=== PATIENT | male | born 1965 | race Caucasian/White ===

== ENCOUNTER 2016-12-22 13:27 | Inpatient (IN) | payer OTHER ==
[~2016-12-22] VITALS: Ht 185.4 cm; Wt 75.4 kg
--- NOTE | ~2016-12-22 | HP ---
Unit #: [id number] #: [id number] Patient: DEYSI WEINER [id number] [place], [place] [address] [id number] MR#: [id number] NAME: DEYSI WEINER ROOM: 24374 Age: 51 Sex: M Admission Date: 12/22/2016 : 1965 Attending Physician: Pepe Callahan M.D. Primary Care Physician: Raheel Dang M.D. HISTORY AND PHYSICAL CHIEF COMPLAINT Alcohol withdrawal. HISTORY OF PRESENT ILLNESS The patient is a 51-year-old male sent to [facility] emergency department from [place] [facility] secondary to alcohol withdrawal. Apparently at that facility the patient was tachycardic. Apparently he was asymptomatic. At this time the patient continues to be asymptomatic, states he feels well, denies chest pain, palpitations, and denies symptoms of withdrawal including hallucinations. PAST MEDICAL HISTORY Lung cancer treated 2014 with recurrence diagnosed in August of this year, alcoholism. PAST SURGICAL HISTORY None. SOCIAL HISTORY The patient smokes, drinks, denies illicit drug use. ALLERGIES Morphine. HOME MEDICATIONS 1. Ibuprofen 800 mg p.o. t.i.d. 2. Remeron 15 mg p.o. daily. 3. Mucinex 1200 mg p.o. b.i.d. 4. ProAir HFA two puffs q.4 h. p.r.n. 5. Oxycodone and acetaminophen 10/325 one p.o. q.8 h. p.r.n. REVIEW OF SYSTEMS A 10-point review of systems was obtained and it is negative with the exception of odynophagia secondary to a history of radiation treatment for his cancer. PHYSICAL EXAMINATION VITAL SIGNS: Temperature 99.2. Pulse 138. Blood pressure 158/94. GENERAL: A 51-year-old male in no acute distress, who appears stated age. HEENT: Pupils are equally round. Extraocular movements intact. Mucous membranes are dry. NECK: Supple. No JVD. No lymphadenopathy. CARDIAC: Regular rate and rhythm. No murmurs, gallops or rubs. Unit #: [id number] #: [id number] Patient: DEYSI WEINER LUNGS: Clear to auscultation bilaterally. ABDOMEN: Nontender, nondistended. Bowel sounds positive. EXTREMITIES: No cyanosis, clubbing or edema. They are warm and dry. PSYCHIATRIC: Alert and oriented x3. Affect is appropriate. NEUROLOGICAL: Cranial nerves II-XII intact grossly. The patient moves all extremities equally and with purpose. SKIN: No rashes, bruises or ulcers. MUSCULOSKELETAL: No muscle or joint pain. No muscle or joint swelling. DIAGNOSTIC STUDIES LABORATORY: Chemistries reveal a sodium of 133, albumin of 3.1, hemoglobin 11.9, IMAGING: None. ASSESSMENT AND PLAN 1. Alcohol withdrawal: The rehab facility at which the patient was admitted was afraid that they were not going to be able to handle the patient's withdrawal. He had been started on Librium 25 mg p.o. q.6 h. and was mildly tachycardic. I will continue this and I have added the CIWA protocol with p.o. Ativan. 2. Lung cancer: The patient states that he was recently diagnosed with a recurrent lung cancer. He was told he has six to nine months to live but plans to undergo chemotherapy. I have discussed with the patient goals of care and possible hospice. The plan going forward is continued treatment. 3. Odynophagia: I have started the patient on viscous lidocaine 30 mL with meals. I have also continued the patient's oxycodone. 4. Prophylaxis: I have started the patient on Lovenox and SCDs. Dictated by Pepe Callahan M.D. NEIDA/merle TD: 12/22/2016 19:41 JOB #: [id number] HISTORY AND PHYSICAL Page 1 of 1 X Pepe Callahan MD X HISTORY AND PHYSICAL
--- NOTE | ~2016-12-22 | EKG ---
PATIENT: DYESI WEINER UNIT #: [id number] Ventricular Rate: 110 BPM Atrial Rate: 110 BPM P-R Interval: 144 ms QRS Duration: 86 ms Q-T Interval: 348 ms QTC Calculation(Bezet): 470 ms P Hannah: 76 degrees Calculated R Hannah: 46 degrees Calculated T Hannah: 76 degrees Diagnosis Line: Sinus tachycardia Diagnosis Line: Otherwise normal ECG Diagnosis Line: No previous ECGs available Diagnosis Line: Confirmed by HILTON SCHNEIDER MD ([id number]) on 12/22/2016 Diagnosis Line: 7:27:51 PM INTERPRETING MD: WYATT LE
--- NOTE | ~2016-12-22 | DS ---
Unit #: [id number] #: [id number] Patient: DEYSI WEINER [id number] [address] [address] [id number] I MR#: [id number] NAME: DEYSI WEINER ROOM: 311 Age: 51 Sex: M Admission Date: 12/22/2016 : 1965 Discharge Date: 12/25/2016 Attending Physician: Pepe Callahan M.D. Primary Care Physician: Raheel Dang M.D. DISCHARGE SUMMARY PRINCIPAL DIAGNOSES 1. Alcohol withdrawal. 2. History of lung cancer. HISTORY This is a 51-year-old male who has history of heavy alcohol abuse, history of lung cancer who follows at [facility]. He came to the emergency room from [place] [facility] secondary to alcohol withdrawal and severe tachycardia. He has been running low-grade temperatures during his (1) and having some chest congestion and wheezing. Was treated with alcohol withdrawal protocol. Also received some antibiotics, Levaquin 750 mg for 3 days. All his home medications were discontinued. He has been doing very well today. He has no alcohol withdrawal symptoms. He is being discharged home. The patient also had some hypomagnesemia, which was replaced today. CONDITION AT DISCHARGE Stable. DISCHARGE MEDICATIONS 1. Albuterol 2 puffs q.4 as needed for wheezing. 2. Ondansetron 4 mg q.6. 3. Remeron 15 mg daily. 4. Trazodone 50 mg b.i.d. 5. Loperamide 2 mg q.4. 6. Dronabinol capsule 5 mg b.i.d. 7. Promethazine 25 mg q.4. 8. Dicyclomine 10 mg t.i.d. 9. Prochlorperazine 10 mg t.i.d. 10. Hydroxyzine 25 mg daily. 11. Librium 25 mg q.6. 12. Guaifenesin. 13. Ibuprofen 800 p.r.n. as needed. 14. Oxycodone 1 tablet q.8. FOLLOWUP Follow up with [facility] for lung cancer, and the patient was discussed to follow up with the alcohol withdrawal facility as an outpatient. Dictated by... Destiney Pulido M.D. Unit #: [id number] #: [id number] Patient: DEYSI WEINER OZIEL/geovani TD: 12/26/2016 11:12 JOB #: [id number] DISCHARGE SUMMARY Page 1 of 1 X Destiney Pulido MD X DISCHARGE SUMMARY
[2016-12-22 15:54] LABS: URINE SOURCE CLEAN CATCH
[2016-12-22 15:59] LABS: BASOPHIL% 0.5 % (0-2.5); EOSINOPHIL# 0.1 X10e3 (0-0.7); EOSINOPHIL% 1.3 % (0.0-7.0); HEMATOCRIT 34.9 % (38.0-50.0); HEMOGLOBIN 11.9 gm/dL (13.0-16.0); LYMPHOCYTE# 0.2 X10e3 (1.0-3.5); LYMPHOCYTE% 4.7 % (17.0-45.0); MEAN CELL VOLUME 97.8 FL (83-96); MEAN CORPUSCULAR HEMOGLOBIN 33.2 PG (28-34); MONOCYTE# 0.4 X10e3 (0-1.0); MONOCYTE% 11.2 % (3.0-12.0); NEUTROPHIL# 3.3 X10e3 (1.5-7.1); NEUTROPHIL% 82.3 % (40-75); PLATELET COUNT 212 X10e3 (140-420); RED BLOOD COUNT 3.57 X10e (3.90-5.60); RED CELL DISTRIBUTION WIDTH 15.4 % (11.0-15.5)
[2016-12-22 16:03] LABS: URINE APPEARANCE CLEAR; URINE BILIRUBIN NEG (NEG); URINE BLOOD NEG (NEG); URINE COLOR YELLOW; URINE GLUCOSE NEG (NEG); URINE KETONE NEG (NEG); URINE LEUKOCYTE ESTERASE NEG (NEG); URINE NITRATE NEG (NEG); URINE PROTEIN TRACE (NEG); URINE SPECIFIC GRAVITY 1.012 (1.003-1.035); URINE UROBILINOGEN 0.2 MG/DL (NEG)
[2016-12-22 16:04] LABS: DIFF IND NO
[2016-12-22 16:08] LABS: CULTURE INDICATED? NO
[2016-12-22 16:15] LABS: AMPHETAMINE NEG (NEG); BARBITURATES NEG (NEG); BENZODIAZEPINES POS (NEG); COCAINE NEG (NEG); MARIJUANA NEG (NEG); OPIATES POS (NEG); TRICYCLIC ANTIDEPRESSANTS NEG (NEG); U METHADONE NEG (NEG)
[2016-12-22 16:33] LABS: ALBUMIN SERUM 3.1 g/dL (3.5-5.0); ALCOHOL BLOOD <5 mg/dL (0); ALKALINE PHOSPHATASE 127 U/L (32-92); ALT (SGPT) 14 U/L (10-40); AST (SGOT) 23 U/L (10-42); BILIRUBIN, DIRECT 0.1 mg/dL (0.0-0.2); BILIRUBIN,INDIRECT 0.4 mg/dL (0.0-0.9); BILIRUBIN,TOTAL 0.5 mg/dL (0.2-2.0); BLOOD UREA NITROGEN 9 mg/dL (9-23); CALCIUM SERUM 8.4 mg/dL (8.4-10.2); CARBON DIOXIDE 30 mmol/L (22-31); CHLORIDE 93 mmol/L (100-111); CREATININE SERUM 0.9 mg/dL (0.6-1.4); GLOM FILT RATE Estimated 99.2 mL/min (>60); GLUCOSE FASTING 95 mg/dL (70-110); POTASSIUM 3.5 mmol/L (3.5-5.1); PROTEIN TOTAL SERUM 6.8 g/dL (6.0-8.3); SODIUM 133 mmol/L (135-145)
[2016-12-22] MEDS ORDERED: PATIENT'S PHARMACY (17:54)
[2016-12-22] MEDS ORDERED: FOLIC ACID1 MG PO (17:54)
[2016-12-22] MEDS ORDERED: BENTYL10 MG PO (17:54)
[2016-12-22] MEDS ORDERED: LOPERAMIDE HCL2 M1 PO (17:55)
[2016-12-22] MEDS ORDERED: HYDROXYZINE HCL25 M1 PO (17:55)
[2016-12-22] MEDS ORDERED: IBUPROFEN PO (17:55)
[2016-12-22] MEDS ORDERED: DESYREL50 MG PO (17:56)
[2016-12-22] MEDS ORDERED: PHENERGAN PO (17:56)
[2016-12-22] MEDS ORDERED: COMPAZINE10 M1 PO (17:56)
[2016-12-22] MEDS ORDERED: LIBRIUM25 M1 PO (17:56)
[2016-12-22] MEDS ORDERED: ALPRAZOLAM PO (17:57)
[2016-12-22] MEDS ORDERED: REMERON PO (17:57)
[2016-12-22] MEDS ORDERED: DRONABINOL5 MG PO (17:57)
[2016-12-22] MEDS ORDERED: LEVAQUIN PO (17:57)
[2016-12-22] MEDS ORDERED: OXYCODONE-ACET1 EAC1 PO (17:58)
[2016-12-22] MEDS ORDERED: ZUPLENZ4 MG PO (17:58)
[2016-12-22] MEDS ORDERED: MUCINEX1200 MG PO (17:58)
[2016-12-22] MEDS ORDERED: PROAIR HFA8.5 GM INH (17:58)
[2016-12-22 18:09] LABS: POC - CKMB 1.2 ng/mL (0.0-7.9); POC - TROPONIN <0.05 ng/mL (<=0.05)
[2016-12-25 05:48] LABS: BUN/CREATININE RATIO 11.42; CREATININE SERUM 0.7 mg/dL (0.6-1.4); GLOM FILT RATE Estimated 110.1 mL/min (>60); MAGNESIUM 1.4 mg/dL (1.6-3.0); POTASSIUM 3.6 mmol/L (3.5-5.1)
[2016-12-25] MEDS ORDERED: LEVAQUIN PO (12:58)
== END 2016-12-25 13:26 | disposition home or self-care (01) | DRG 897 ==
LOC: CED 13:27 → CEDOF 18:36 → CED 19:36 → CEDOF 19:52 → C3A PCU 19:52
PROVIDERS: Emergency Medicine; Internal Medicine
DX: F10.239 Alcohol dependence with withdrawal, unspecified (principal); E83.42 Hypomagnesemia; R00.0 Tachycardia, unspecified; Z92.3 Personal history of irradiation; F17.210 Nicotine dependence, cigarettes, uncomplicated; Z88.5 Allergy status to narcotic agent; R13.10 Dysphagia, unspecified
CPT/HCPCS: 36415; 80048; 80076; 80307; 81003; 82553; 83735; 84443; 84484; 85025; 93005; 94640; 94664; 94760; 99285; G0480; J0696; J1650; Q0167